=== PATIENT | female | born 2000 | race Caucasian/White ===

== ENCOUNTER 2021-01-01 13:16 | Emergency (ER) | payer OTHER ==
[2021-01-01 14:01] LABS: HEMOGLOBIN 14.5 gm/dl (12.3-15.3); RED BLOOD COUNT 4.62 M/UL (4.00-5.10); WHITE BLOOD COUNT 9.9 K/UL (4.5-11.0)
[2021-01-01 14:22] LABS: BUN/CREATININE RATIO 11 (0-10)
[2021-01-01] MEDS ORDERED: PYRIDIUM200 MG PO (15:39)
[2021-01-01] MEDS ORDERED: ZOFRAN4 MG PO (15:39)
[2021-01-01] MEDS ORDERED: CEFUROXIME500 MG PO (15:39)
== END 2021-01-01 15:55 | disposition home or self-care (01) ==
LOC: ER1 13:16
PROVIDERS: Physician Assistant
DX: N39.0 Urinary tract infection, site not specified (principal); Z87.442 Personal history of urinary calculi
CPT/HCPCS: 80053; 81001; 83605; 84703; 85025; 87040; 87077; 87086; 87186; 96374; 96375; 99284; J0696; J1885; J2405; J7030